=== PATIENT | female | born 1940 | race Caucasian/White ===

== ENCOUNTER 2018-12-14 13:50 | Observation (INO) ==
[2018-12-14 16:45] LABS: Basophils # 0.1 K/mcL (0.0-0.2); Basophils % 0.3 %; Eosinophils % 0.1 %; Hematocrit 45.2 % (35.3-44.9); Hemoglobin 15.7 g/dL (11.5-15.4); Immature Granulocytes % 0.6 % (0-4); Lymphocytes # 1.7 K/mcL (0.6-4.6); Lymphocytes % 9.9 %; Mean Corpuscular HGB Conc 34.7 g/dL (31.6-35.5); Mean Corpuscular Hemoglobin 32.6 pg (28.0-33.3); Mean Corpuscular Volume 93.8 fL (83.0-100.0); Mean Platelet Volume 9.7 fL (9.4-12.4); Monocytes # 1.5 K/mcL (0.0-1.3); Monocytes % 8.6 %; Platelet Count 282 K/mcL (140-400); Red Blood Count 4.82 M/mcL (3.82-4.97); Red Cell Distribution Width 11.2 % (11.5-14.5); Segmented Neutrophils % 80.5 %
[2018-12-14 16:55] LABS: Prothrombin Time 10.8 Seconds (9.4-12.1)
[2018-12-14 17:10] LABS: Alanine Aminotransferase 7 Units/L (7-52); Albumin 4.3 g/dL (3.5-5.7); Albumin/Globulin Ratio 1.7 (1.1-2.2); Alkaline Phosphatase 84 Units/L (34-104); Aspartate Amino Transferase 22 Units/L (13-39); BUN/Creatinine Ratio 11 (6-26); Bilirubin,Direct 0.1 mg/dL (0.0-0.2); Bilirubin,Indirect 0.4 mg/dL (0.0-1.2); Bilirubin,Total 0.5 mg/dL (0.3-1.0); Blood Urea Nitrogen 8 mg/dL (8-23); Calcium 9.8 mg/dL (8.6-10.3); Carbon Dioxide 35 mEq/L (23-29); Chloride 90 mEq/L (98-107); Globulin 2.5 g/dL (2.4-3.5); Glucose 144 mg/dL (70-105); Osmolality,Calculated 273 (280-300); Potassium 2.7 mEq/L (3.5-5.1); Sodium 131 mEq/L (136-145); Total Protein 6.8 g/dL (6.4-8.9); Troponin I 0.75 ng/mL (< 0.04); eGFR For Non-African Americans > 60 (> 60)
[2018-12-14] MEDS ORDERED: Aspirin 325 MG TABLET PO ONE (17:10)
[2018-12-14] MEDS ORDERED: *HR* Heparin 5,000 UNIT/ML VIAL IVP ONE (17:40)
[2018-12-14] MEDS ORDERED: *HR* Heparin 5,000 UNIT/ML VIAL IVP PRN (17:40)
--- NOTE | 2018-12-14 17:44 | Emergency Department Note ---
Disposition Clinical Impression: Elevated troponin, NSTEMI (non-ST elevated myocardial infarction), Malaise, Hypokalemia Disposition: Admitted As Inpatient Condition: Good Referrals: Naty Dyer TRANSPORTATION TECHNICIAN [Primary Care Provider] - Forms: ED Satisfaction Letter Time of Disposition: 17:51 General Adult HPI - General Chief complaint: ED Altered Mental Status Stated complaint: General Time Seen by Provider: 12/14/18 16:27 Source: patient Limitations: no limitations Nursing Notes Reviewed: Yes Vital Signs Reviewed: Yes - History of Present Illness HPI Narrative: 78-year-old female history of hyperlipidemia presents with for concern of malaise. She states she attempted to call her primary care provider but was out of the office and so they came to the emergency department to be evaluated. Patient was recently evaluated for cough and congestion 3 days ago which has not improved. She states she has been feeling more tired over the past 3 months. She has had difficulty with sleeping in earlier this month was prescribed drugs disease to help with her insomnia, which has not helped her. She denies any chest pain or shortness of breath. She denies any urinary symptoms. Husbands concerned that she is not been acting herself. Denies history of cardiac ischemic disease. She denies depression. She reports a poor diet due to low energy. Pain Scale: 0 - Related Data Previous Rx's Medication Instructions Recorded Azithromycin [Zithromax] 250 mg PO DAILY #6 tablet 12/11/18 predniSONE [PredniSONE] 40 mg PO DAILY #10 tablet 12/11/18 Allergies Allergy/AdvReac Type Severity Reaction Status Date / Time No Known Allergies Allergy Verified 11/07/18 16:47 All systems ED: reviewed and negative except as stated. Review of Systems: As Per HPI Constitutional: Reports: weakness. Denies: fever, chills ENT ED: Reports: congestion Cardiovascular: Denies: chest pain Respiratory: Denies: cough, dyspnea Gastrointestinal: Denies: abdominal pain, nausea, vomiting Genitourinary: Denies: dysuria Musculoskeletal: Denies: back pain, neck pain Neurological: Denies: headache Endocrine: Reports: fatigue Past Medical History - Past Medical History Attestation: Yes The following information was validated with the patient. Source: patient Medical history: Reports: hyperlipidemia Psychiatric history: Reports: no psych history - Social History Smoking Status: Former smoker Smokeless Tobacco Status: No Alcohol use: Reports: none Drug use: Reports: none Physical Exam - General Limitations: no limitations General appearance: alert, in no apparent distress, cachectic - Head Head exam: atraumatic, normocephalic, normal inspection - Eye Eye exam: Present: normal appearance, PERRL, EOMI - ENT ENT exam: normal exam, normal oropharynx, mucous membranes moist - Neck Neck exam: Present: normal inspection, full ROM, trachea midline - Chest Chest inspection: Present: normal inspection, symmetric chest wall rise - Respiratory Respiratory exam: Present: normal lung sounds bilaterally - Cardiovascular Cardiovascular exam: Present: regular rate, normal rhythm, normal heart sounds - Expanded Cardiovascular Exam Peripheral pulses: 2+: radial (R), radial (L) - Abdominal Exam Abdominal exam: Present: soft, Non-Tender, normal bowel sounds. Absent: tenderness, distention, guarding, rebound, rigidity - Extremities Exam Extremities exam: Present: normal inspection, full ROM, normal capillary refill. Absent: tenderness, pedal edema, calf tenderness - Back Exam Back exam: Present: normal inspection, full ROM. Absent: tenderness - Neurological Exam Neurological exam: Present: alert, oriented X3 - Psychiatric Psychiatric exam: Present: normal affect, normal mood - Skin Skin exam: Present: warm, dry, intact, normal color. Absent: rash, cyanosis, diaphoresis Course Course Narrative: Patient was evaluated 2 hours after initial arrival, labs were ordered prior to my evaluation. She had a critical troponin of 0.75. EKG shows a left bundle branch block the does appear consistent with prior EKG 2014. She denies any ongoing chest pain or history of chest pain. She does report a congestion that she was recently evaluated 3 days ago. She denies any shortness of breath. Her only the complaint his malaise. At this time patient will require admission for further evaluation of her elevated troponin as it is unexplained at this time. Will replete her potassium at this time. Impression is elevated troponin, NSTEMI, and hypokalemia with malaise. She has been ordered aspirin and will be anticoagulated with heparin as she denies any bloody stool blacked tarry stool hemoptysis hematemesis or hematuria - Consultations Consultation #1: Spoke with on-call manager integrity Dr. Jonas who reviewed the EKG's and agrees this is nothing acute at this time but would anticoagulated with heparin. If repeat EKG has dynamic changes consider speaking with interventional cardiologists otherwise will evaluate the patient in the hospital Time: 17:44 Consultation #2: Spoke with on-call hospitalist christa Narvaez to admit for malaise, elevated trop, NSTEMI, hypokalemia. We discussed the lab findings which included a leukocytosis despite on steroids. Requests for blood cultures, lactate as well as magnesium and phosphorus. Time: 17:52 Vital Signs Temperature 97.9 F 12/14/18 13:55 Pulse Rate 81 12/14/18 13:55 Respiratory Rate 20 12/14/18 13:55 Blood Pressure 137/65 12/14/18 13:55 O2 Sat by Pulse Oximetry 94 12/14/18 13:55 Temperature 97.9 F 12/14/18 13:55 Pulse Rate 62 12/14/18 17:34 Respiratory Rate 18 12/14/18 17:34 Blood Pressure 128/94 12/14/18 17:34 O2 Sat by Pulse Oximetry 98 12/14/18 17:34 Oxygen Delivery Oxygen Delivery Room Air Medical Decision Making - MDM Narrative Medical decision making narrative: Patient was discussed with my attending physician who agrees with ED management and final disposition. They independently evaluated the patient. Please refer to their attestation to this encounter for additional information. This note was generated by [employer] voice recognition software and as a result grammatical or spelling errors may occur using this program. - Medical Records Medical records reviewed: Yes I reviewed the patient's medical records. - Lab Data Lab results reviewed: Yes I reviewed the patient's lab results. Result diagrams: 12/14/18 16:26 12/14/18 16:26 Lab Results 12/14/18 12/14/18 12/14/18 Range/Units 16:26 16:26 16:26 WBC 17.4 H (4.3-11.1) K/mcL RBC 4.82 (3.82-4.97) M/mcL Hgb 15.7 H (11.5-15.4) g/dL Hct 45.2 H (35.3-44.9) % MCV 93.8 (83.0-100.0) fL MCH 32.6 (28.0-33.3) pg MCHC 34.7 (31.6-35.5) g/dL RDW 11.2 L (11.5-14.5) % Plt Count 282 (140-400) K/mcL MPV 9.7 (9.4-12.4) fL Immature Gran % 0.6 (0-4) % Seg Neutrophils % 80.5 % Lymphocytes % 9.9 % Monocytes % 8.6 % Eosinophils % 0.1 % Basophils % 0.3 % Neutrophils # 14.0 H (1.6-8.9) K/mcL Lymphocytes # 1.7 (0.6-4.6) K/mcL Monocytes # 1.5 H (0.0-1.3) K/mcL Eosinophils # 0.0 (0.0-0.6) K/mcL Basophils # 0.1 (0.0-0.2) K/mcL PT 10.8 (9.4-12.1) Seconds INR 1.0 APTT 29.0 (26.0-36.0) Seconds Sodium 131 L (136-145) mEq/L Potassium 2.7 L (3.5-5.1) mEq/L Chloride 90 L (98-107) mEq/L Carbon Dioxide 35 H (23-29) mEq/L BUN 8 (8-23) mg/dL Creatinine 0.76 (0.60-1.20) mg/dL Est GFR ( Amer) > 60 (> 60) Est GFR (Non-Af Amer) > 60 (> 60) BUN/Creatinine Ratio 11 (6-26) Glucose 144 H (70-105) mg/dL Calculated Osmolality 273 L (280-300) Calcium 9.8 (8.6-10.3) mg/dL Total Bilirubin 0.5 (0.3-1.0) mg/dL Direct Bilirubin 0.1 (0.0-0.2) mg/dL Indirect Bilirubin 0.4 (0.0-1.2) mg/dL AST 22 (13-39) Units/L ALT 7 (7-52) Units/L Alkaline Phosphatase 84 (34-104) Units/L Troponin I 0.75 H* (< 0.04) ng/mL Serum Total Protein 6.8 (6.4-8.9) g/dL Albumin 4.3 (3.5-5.7) g/dL Globulin 2.5 (2.4-3.5) g/dL Albumin/Globulin Ratio 1.7 (1.1-2.2) - Radiology Data Radiology results reviewed: Yes I reviewed the patient's radiology results. Chest X-Ray 12/14/18 15:37 IMPRESSION: Negative single view chest. D/ / Brian Frazier MD / Brian Frazier MD Interpreting Provider: Brian Frazier MD - EKG Data EKG #1 EKG attestation: Yes I reviewed and interpreted this EKG. EKG results narrative: EKG performed 1622 normal sinus rhythm 67 beats per minute with left bundle branch block, no Sgarbossa criteria. Compared to prior EKG performed 03/01/2015 shows so some intraventricular conduction delay with similar wave morphology. A repeat EKG was performed 1724 and 1752 does show the elevations and V1 through V3 similar to prior consistent with left bundle branch block. Attestation Statement - Attestation Attestation: I, Kota Pérez DO, examined this patient [id number] and my medical decision-making was reviewed with Steve Benitez DO , Resident Physician. I agree with the documented findings, disposition and treatment plan as described except to the extent set forth below. Please see my progress notes for details.
[2018-12-14] MEDS ORDERED: Heparin 25,000 UNIT/250 ML D5W 25,000 UNIT/250 ML IV.SOLN IVC SCH (17:45)
[2018-12-14] MEDS ORDERED: 0.9 % Sodium Chloride 500 ML IVC ONE (17:46)
--- NOTE | 2018-12-14 18:11 | Emergency Department Note ---
Disposition Clinical Impression: Elevated troponin, NSTEMI (non-ST elevated myocardial infarction), Malaise, Hypokalemia Disposition: Admitted As Inpatient Condition: Good Referrals: Naty Dyer SPECIAL EDUCATION TEACHING ASSISTANT [Primary Care Provider] - Forms: ED Satisfaction Letter Time of Disposition: 18:12 General Adult HPI - General Chief complaint: ED Altered Mental Status Stated complaint: General Time Seen by Provider: 12/14/18 16:27 Source: patient Limitations: no limitations - History of Present Illness Pain Scale: 0 - Related Data Previous Rx's Medication Instructions Recorded Azithromycin [Zithromax] 250 mg PO DAILY #6 tablet 12/11/18 predniSONE [PredniSONE] 40 mg PO DAILY #10 tablet 12/11/18 Allergies Allergy/AdvReac Type Severity Reaction Status Date / Time No Known Allergies Allergy Verified 11/07/18 16:47 Constitutional: Reports: weakness. Denies: fever, chills ENT ED: Reports: congestion Cardiovascular: Denies: chest pain Respiratory: Denies: cough, dyspnea Gastrointestinal: Denies: abdominal pain, nausea, vomiting Genitourinary: Denies: dysuria Musculoskeletal: Denies: back pain, neck pain Neurological: Denies: headache Endocrine: Reports: fatigue Past Medical History - Past Medical History Medical history: Reports: hyperlipidemia Psychiatric history: Reports: no psych history - Social History Smoking Status: Former smoker Smokeless Tobacco Status: No Alcohol use: Reports: none Drug use: Reports: none Physical Exam - General Limitations: no limitations General appearance: alert, in no apparent distress, cachectic Course Vital Signs Temperature 97.9 F 12/14/18 13:55 Pulse Rate 81 12/14/18 13:55 Respiratory Rate 20 12/14/18 13:55 Blood Pressure 137/65 12/14/18 13:55 O2 Sat by Pulse Oximetry 94 12/14/18 13:55 Temperature 97.9 F 12/14/18 13:55 Pulse Rate 62 12/14/18 17:34 Respiratory Rate 18 12/14/18 17:34 Blood Pressure 128/94 12/14/18 17:34 O2 Sat by Pulse Oximetry 98 12/14/18 17:34 Oxygen Delivery Oxygen Delivery Room Air Medical Decision Making - Lab Data Result diagrams: 12/14/18 16:26 12/14/18 16:26 Lab Results 03/26/19 03/26/19 03/26/19 Range/Units 16:26 16:26 16:26 WBC 17.4 H (4.3-11.1) K/mcL RBC 4.82 (3.82-4.97) M/mcL Hgb 15.7 H (11.5-15.4) g/dL Hct 45.2 H (35.3-44.9) % MCV 93.8 (83.0-100.0) fL MCH 32.6 (28.0-33.3) pg MCHC 34.7 (31.6-35.5) g/dL RDW 11.2 L (11.5-14.5) % Plt Count 282 (140-400) K/mcL MPV 9.7 (9.4-12.4) fL Immature Gran % 0.6 (0-4) % Seg Neutrophils % 80.5 % Lymphocytes % 9.9 % Monocytes % 8.6 % Eosinophils % 0.1 % Basophils % 0.3 % Neutrophils # 14.0 H (1.6-8.9) K/mcL Lymphocytes # 1.7 (0.6-4.6) K/mcL Monocytes # 1.5 H (0.0-1.3) K/mcL Eosinophils # 0.0 (0.0-0.6) K/mcL Basophils # 0.1 (0.0-0.2) K/mcL PT 10.8 (9.4-12.1) Seconds INR 1.0 APTT 29.0 (26.0-36.0) Seconds Sodium 131 L (136-145) mEq/L Potassium 2.7 L (3.5-5.1) mEq/L Chloride 90 L (98-107) mEq/L Carbon Dioxide 35 H (23-29) mEq/L BUN 8 (8-23) mg/dL Creatinine 0.76 (0.60-1.20) mg/dL Est GFR ( Amer) > 60 (> 60) Est GFR (Non-Af Amer) > 60 (> 60) BUN/Creatinine Ratio 11 (6-26) Glucose 144 H (70-105) mg/dL Calculated Osmolality 273 L (280-300) Calcium 9.8 (8.6-10.3) mg/dL Total Bilirubin 0.5 (0.3-1.0) mg/dL Direct Bilirubin 0.1 (0.0-0.2) mg/dL Indirect Bilirubin 0.4 (0.0-1.2) mg/dL AST 22 (13-39) Units/L ALT 7 (7-52) Units/L Alkaline Phosphatase 84 (34-104) Units/L Troponin I 0.75 H* (< 0.04) ng/mL Serum Total Protein 6.8 (6.4-8.9) g/dL Albumin 4.3 (3.5-5.7) g/dL Globulin 2.5 (2.4-3.5) g/dL Albumin/Globulin Ratio 1.7 (1.1-2.2) Attestation Statement - Attestation Attestation: I, Kota Pérez DO, examined this patient [id number] and my medical decision-making was reviewed with (Steve Benitez DO , Resident Physician. I agree with the documented findings, disposition and treatment plan as described except to the extent set forth below. Please see my progress notes for details. 78-year-old female presents emergency room with multiple diet complaints including generalized malaise and weakness for the last several months. Patient denies any falls trauma or injury. She does not have any new or acute medical issues. Currently she is denying chest pain, shortness of breath. Denies any fevers or chills. She does not have any nausea vomiting or diarrhea. No headache no vision change. Patient's vital signs otherwise stable. She denies any new medications falls trauma or injury. On physical exam this is a very thin appearing female in no specific respiratory or cardiac distress. Lungs are clear heart is regular. Oropharynx is patent mucous membranes are dry. Abdomen is soft nontender nondistended. No guarding no rigidity. No signs of pitting is edema or swelling noted at this time. Disposition to be determined once workup and treatment course have been established. Patient is otherwise stable. See detailed documentation the physical exam, medical intervention, medical decision-making and disposition the resident physician's note. No critical care by the patient's treatment course at this time. 1800 EKG shows stable left bundle branch block. No acute signs of ST segment elevation or abnormality. Patient does have an elevated troponin at 0.75. She again denies any chest pain or recent issues with chest pain. Patient was discussed with the on-call tanbark laborer Dr. rees reviewed the EKG and the presentation and did recommend starting the patient on heparin. Patient is otherwise describing no acute complaints at this time. Disposition will be admission the hospital for continuation of care management. Patient otherwise is stable resting comfortably in the bed and does not appear to have any respiratory or cardiac related stress or symptoms at this time. Disposition will be admission. The hospitalist Dr. Del Rio reviewed the case. Recommended several alive secondary to the elevated white blood cell count. Concern is noted for infection. She was recently on antibiotics and steroids. No antibiotic regimen will be started at this point with a heparin drip will be completed. Patient will be monitored here in the emergency department until admission processes established. Patient will have a lactic acid collected as well and blood cultures. Patient will be monitored here until admission is completed
[2018-12-14 18:32] LABS: Bilirubin,Urine Negative (Negative); Blood,Urine Trace (Negative); Clarity,Urine Cloudy (Clear); Color,Urine Yellow (Yellow); Glucose,Urine (UA) Normal (Normal); Ketones,Urine Negative (Negative); Leukocyte Esterase,Urine Negative (Negative); Nitrite,Urine Negative (Negative); Protein,Urine 30 mg/dL (Neg-Trace); Specific Gravity,Urine 1.006 (1.010-1.025); Urobilinogen,Urine Normal (Normal)
[2018-12-14 18:34] LABS: Bacteria,Urine None Seen per hpf (None-Few); Hyaline Casts,Urine None Seen per lpf (None-Few); Squamous Epithelial Cell,Urine Many per lpf (None-Few); WBC,Urine 0-3 per hpf (0-3)
[2018-12-14 18:51] LABS: Hematocrit 40.3 % (35.3-44.9); Hemoglobin 14.4 g/dL (11.5-15.4); Mean Corpuscular HGB Conc 35.7 g/dL (31.6-35.5); Mean Corpuscular Hemoglobin 32.6 pg (28.0-33.3); Mean Corpuscular Volume 91.2 fL (83.0-100.0); Mean Platelet Volume 9.4 fL (9.4-12.4); Platelet Count 254 K/mcL (140-400); Red Blood Count 4.42 M/mcL (3.82-4.97); Red Cell Distribution Width 11.6 % (11.5-14.5)
[2018-12-14 18:52] LABS: Amphetamine Screen,Urine Negative ng/mL (Cutoff=1000); Barbiturate Screen,Urine Negative ng/mL (Cutoff=200); Benzodiazepines Screen,Urine Negative ng/mL (Cutoff=200); Cannabinoid Screen,Urine Negative ng/mL (Cutoff = 50); Cocaine Screen,Urine Negative ng/mL (Cutoff= 300); Opiate Screen,Urine Negative ng/mL (Cutoff=300); Phencyclidine Screen,Urine Negative ng/mL (Cutoff=25)
[2018-12-14 19:07] LABS: INR 0.9
[2018-12-14 19:11] LABS: Magnesium 1.8 mg/dL (1.6-2.6); Phosphorous 2.4 mg/dL (2.7-4.5)
--- NOTE | 2018-12-14 20:35 | Internal Med History&Physical ---
<ShanLexi Cheung - Last Filed: 12/14/18 21:27> Date of Encounter: 12/14/18 Time of Encounter: 20:45 Internal Medicine - H&P: HPI Chief complaint: Malaise Admitted From: Home History of present illness: Ms. Polanco is a 78 year old female with a history of hyperlipidemia and insomnia who presented to the ER with her with complaint of malaise and congestion. Patient was recently seen in the ER on 12/11/18 with complaint of congestion and was discharged with a Z-Prem and prednisone 40 mg daily. She started taking these medications yesterday. Patient reports not feeling like herself since she fell in mid October. Her also reports that she has lost approximately 10 pounds in the past year and has had a reduced appetite. She states that she is usually pretty healthy and self-sufficient, but just has not been able to do her usual activities over the past month. She has been struggling with some congestion and sinus pressure for the past week. She also admits to a nonproductive cough and dry heaves without vomiting since Thursday. She denies any fever, chills, chest pain, syncope, shortness of breath, a bdominal pain, or diarrhea. Patient was found to have an elevated troponin at 0.75 as well as hypokalemia 2.7 and is being admitted for further evaluation. ER course: Afebrile, HR 77, RR 20, BP 143/87, 94% on RA WBC 17.4, Lactate 2.2 PT 10.8, INR 1. Na 131, K2.7, Mg 1.8, Phos 2.4 Troponin 0.75 UA negative Urine tox screen negative EKG NSR with left bundle branch block similar to previous CXR without acute abnormality 500 mL NS fluid bolus ASA 325 mg 1, started on heparin Potassium 40 meq 1 Blood cultures 2 Past Med Surg Social Fam HX - Past Medical History Medical history: hyperlipidemia Psychiatric history: no psych history - Past Surgical History Additional surgical history: L hip repair - Social History Smoking Status: Former smoker Smokeless Tobacco Status: No Alcohol use: none Drug use: none - Family History Father Living Status: Age at : 50 Cause of : RI Hx Family Cardiac Disorders: Yes ( secondary to RI in his 50s) Mother Living Status: Age at : 70 Cause of : CVA Internal Medicine - H&P: Meds Ascorbic Acid [Vitamin C] 500 mg PO DAILY 12/14/18 [History] Cholecalciferol (Vitamin D3) [Vitamin D] 5,000 unit PO DAILY 12/14/18 [History] Guaifenesin/Dm/Pseudoephedrine [Capmist Dm Tablet] 1 tab PO DAILY PRN 12/14/18 [History] Lactobacillus Acidophilus [Acidophilus] 1 cap PO DAILY 12/14/18 [History] Loratadine [Claritin] 10 mg PO DAILY 12/14/18 [History] RX: Dicyclomine Hcl [Bentyl] 20 mg PO QID PRN 12/14/18 [History] RX: Folic Acid 1 mg PO DAILY 12/14/18 [History] RX: Lovastatin [Altoprev] 20 mg PO HS 12/14/18 [History] Allergy/AdvReac Type Severity Reaction Status Date / Time No Known Allergies Allergy Verified 11/07/18 16:47 All Systems PM: A 10-system review of systems was performed and is negative for pertinent findings except as documented above in the HPI. - Constitutional Constitutional: malaise, weight loss, no chills, no fever(s) Additional comments: Approximately 10 pounds over the past year - EENT Eyes: no change in vision, no itchy eyes Nose, mouth and throat: nasal congestion, nasal discharge, sinus pressure, no dysphagia, no sore throat - Cardiovascular Cardiovascular ROS IM: no chest pain, no diaphoresis, no dyspnea, no edema, no lightheadedness, no palpitations, no syncope - Respiratory Respiratory: cough, no dyspnea, no chest congestion - Gastrointestinal Gastrointestinal: belching, early satiety, excessive flatus, no abdominal pain, no diarrhea, no hematemesis, no hematochezia, no melena, no nausea, no vomiting - Genitourinary Genitourinary: no difficulty urinating, no dysuria, no hematuria, no vaginal discharge - Musculoskeletal Musculoskeletal ROS IM: no arthralgias, no joint swelling, no muscle weakness, no numbness, no tingling - Neurological Neurological ROS: memory loss, no confusion, no disequilibrium, no dizziness, no headache(s), no numbness, no tingling, no vertigo Additional comments: admits to feeling motion sick at times - Psychiatric Psychiatric: change in appetite (decreased with early satiety), no confusion, no depression, no mood swings - Constitutional Vitals: Temp Pulse Resp BP Pulse Ox 97.9 F 88 18 134/68 98 12/14/18 13:55 12/14/18 20:02 12/14/18 20:02 12/14/18 20:02 12/14/18 20:02 General appearance: Present: A&O X 3, no acute distress, underweight, answers questions appropriately Exam: see above - Head Head exam: Present: atraumatic, normocephalic - Eye Eye exam: Present: EOMI, conjuntiva pink, sclera anicteric - Neck Neck exam general surgery: Present: trachea midline - Respiratory Respiratory exam: Present: CTAB. Absent: accessory muscle use, rales, rhonchi, wheezes - Cardiovascular Cardiovascular exam: Present: RRR, +S1, +S2. Absent: diastolic murmur, systolic murmur - GI/Abdominal GI/Abdominal exam: Present: normal bowel sounds, soft. Absent: distended, tenderness - Extremities Exam Extremities exam: Present: warm, radial pulses palpable and symmetrical. Absent: cyanotic, pedal edema - Neurological Exam Neurological exam: Present: oriented X3, no focal deficits. Absent: pronater drift, facial droop, speech deficit - Psychiatric Psychiatric exam: Present: normal affect, normal mood - Skin Skin exam: Present: dry, intact, warm. Absent: cyanosis, diaphoretic, rash Internal Med - H&P Results - Labs CBC & Chem 7: 12/14/18 17:40 12/14/18 16:26 Labs: Short CBC 12/14/18 12/14/18 Range/Units 16:26 17:40 WBC 17.4 H 17.0 H (4.3-11.1) K/mcL Hgb 15.7 H 14.4 (11.5-15.4) g/dL Hct 45.2 H 40.3 (35.3-44.9) % Plt Count 282 254 (140-400) K/mcL Neutrophils # 14.0 H (1.6-8.9) K/mcL BMP 12/14/18 16:26 Sodium 131 L Potassium 2.7 L Chloride 90 L Carbon Dioxide 35 H BUN 8 Creatinine 0.76 Glucose 144 H Calcium 9.8 Cardiac Enzymes 12/14/18 Range/Units 16:26 Troponin I 0.75 H* (< 0.04) ng/mL Liver Function 12/14/18 Range/Units 16:26 Total Bilirubin 0.5 (0.3-1.0) mg/dL Direct Bilirubin 0.1 (0.0-0.2) mg/dL AST 22 (13-39) Units/L ALT 7 (7-52) Units/L Alkaline Phosphatase 84 (34-104) Units/L Albumin 4.3 (3.5-5.7) g/dL Urine 12/14/18 Range/Units 18:13 Urine Color Yellow (Yellow) Urine Clarity Cloudy A (Clear) Urine pH 7.0 (5.0-8.0) pH Units Ur Specific [place] 1.006 L (1.010-1.025) Urine Protein 30 H (Neg-Trace) mg/dL Urine Glucose (UA) Normal (Normal) mg/dL - Impressions ITS Impressions Chest X-Ray 12/14/18 15:37 IMPRESSION: Negative single view chest. D/ / Brian Frazier MD / Brian Frazier MD Interpreting Provider: Brian Frazier MD - Assessment and Plan (1) Elevated troponin Current Visit: Yes Status: Acute Assessment and plan: Troponin 0.75 on presentation, unclear if this is acute vs demand ischemia vs baseline Patient denies CP, cardiac hx, or previous workup EKG NSR with left bundle branch block similar to previous EKG Patient was given ASA and started on Heparin in the ER Repeat troponin pending Echo pending Clinically does not appear to be NSTEMI dt patient being asymptomatic and EKG without acute changes, will trend troponin and consider discontinuing heparin drip if appears to adynamic (2) Electrolyte imbalance Current Visit: Yes Status: Acute Assessment and plan: Likely secondary to dehydration and poor nutritional status Na 131, K 2.7, Cl 90, Phos 2.4 Potassium Chloride 40meq x1 in ER s/p 500 mL NS bolus 0.9% NS with KCl x 1L Potassium Phosphate 22meq ordered Will reassess on AM labs (3) Leukocytosis Current Visit: Yes Status: Acute Assessment and plan: Likely secondary to recent steroid treatment, less concern for infectious etiology WBC 17.4 on presentation Lactic acid 2.2 Afebrile UA negative CXR negative blood cultures pending Continue IVFs Will reassess on AM labs Qualifiers: Leukocytosis type: unspecified Qualified Code(s): D72.829 - Elevated white blood cell count, unspecified (4) Congestion of paranasal sinus Current Visit: Yes Status: Acute Assessment and plan: Mild congestion with nonproductive cough 1 week No antibiotics warranted at this time Continue albuterol, mucolytics, and decongestant PRN (5) Malaise Current Visit: Yes Status: Acute Assessment and plan: Possibly related to deconditioning s/p recent fall vs nutritional status vs viral sinusitis Continue supportive care (6) Protein calorie malnutrition Current Visit: Yes Status: Acute Assessment and plan: states patient has lost approximately 10 pounds in the past year Patient admits to decreased appetite and early satiety BMI 15.6 Follows regularly with PCP in [place], consider further outpatient evaluation Continue supportive care Qualifiers: Protein-calorie malnutrition severity: unspecified severity Qualified Code(s): E46 - Unspecified protein-calorie malnutrition (7) DVT prophylaxis Current Visit: Yes Status: Acute Assessment and plan: Heparin - Time Spent With Patient Total time spent is greater than 50% in coordination of care (as documented) at patient's floor/unit and/or counseling patient: <Denae Dickinsoneleni - Last Filed: 12/15/18 01:54> Date of Encounter: 12/14/18 Internal Medicine - H&P: HPI History of present illness: Ms. Polanco is a 78 year old female All Systems PM: A 10-system review of systems was performed and is negative for pertinent findings except as documented above in the HPI. - Constitutional Vitals: Temp Pulse Resp BP Pulse Ox 97.4 F L 79 18 135/62 92 12/14/18 23:36 12/14/18 23:36 12/14/18 23:36 12/14/18 23:36 12/14/18 23:36 Internal Med - H&P Results - Labs CBC & Chem 7: 12/14/18 17:40 12/14/18 23:50 Labs: Short CBC 12/14/18 12/14/18 Range/Units 16:26 17:40 WBC 17.4 H 17.0 H (4.3-11.1) K/mcL Hgb 15.7 H 14.4 (11.5-15.4) g/dL Hct 45.2 H 40.3 (35.3-44.9) % Plt Count 282 254 (140-400) K/mcL Neutrophils # 14.0 H (1.6-8.9) K/mcL BMP 12/14/18 12/14/18 16:26 23:50 Sodium 131 L 135 L Potassium 2.7 L 3.3 L Chloride 90 L 95 L Carbon Dioxide 35 H 32 H BUN 8 9 Creatinine 0.76 0.63 Glucose 144 H 94 Calcium 9.8 9.2 Cardiac Enzymes 12/14/18 Range/Units 16:26 Troponin I 0.75 H* (< 0.04) ng/mL Liver Function 12/14/18 Range/Units 16:26 Total Bilirubin 0.5 (0.3-1.0) mg/dL Direct Bilirubin 0.1 (0.0-0.2) mg/dL AST 22 (13-39) Units/L ALT 7 (7-52) Units/L Alkaline Phosphatase 84 (34-104) Units/L Albumin 4.3 (3.5-5.7) g/dL Urine 12/14/18 Range/Units 18:13 Urine Color Yellow (Yellow) Urine Clarity Cloudy A (Clear) Urine pH 7.0 (5.0-8.0) pH Units Ur Specific [place] 1.006 L (1.010-1.025) Urine Protein 30 H (Neg-Trace) mg/dL Urine Glucose (UA) Normal (Normal) mg/dL - Impressions ITS Impressions Chest X-Ray 12/14/18 15:37 IMPRESSION: Negative single view chest. D/ / Brian Frazier MD / Brian Frazier MD Interpreting Provider: Brian Frazier MD - Time Spent With Patient Total time spent is greater than 50% in coordination of care (as documented) at patient's floor/unit and/or counseling patient: - Attending Attestation I performed a history and physical exam of the patient on 12/14/18 and discussed management with the resident. I reviewed the resident's note and agree with the documented findings and plan of care. Caprice Polanco presents with complaints of URI symptoms that have been bothersome but incidentally had a troponin test done in the ER for no specified reason and seen elevated at 0.75. EKG as reviewed by me shows LBBB which is similar to old studies. Although she denies any known prior heart disease, the presence of LBBB does correlate with her having had heart problems in the past. It is unclear if this troponin elevation is associated with that and perhaps part of her baseline as we have no prior test in our system. Clinically she does not present with signs of ACS as her complaints her congestion and insomnia. She was started on heparin gtt haphazardly. Will monitor on telemetry, repeat another troponin level and if adynamic discontinue the anticoagulation. Provide symptomatic relief measures for URI. Leukocyte elevation seems secondary to use of steroids. No indication for antibiotics. Notable electrolyte imbalances with hypokalemia/natremia/chloremia/phosphatemia. Appears to be secondary to poor intake and evident dehydration. Will replete these electrolytes and recheck. YVETTE MORAN.
[2018-12-14] MEDS ORDERED: 0.9 % Sodium Chloride w KCl 40 MEQ/1,000 ML MLS IVC SCH (21:00)
[2018-12-14] MEDS ORDERED: Naloxone 0.4 MG/ML INJ IVP PRN (21:44)
[2018-12-14] MEDS ORDERED: Ondansetron ODT 4 MG TAB.RAPDIS SL PRN (21:44)
[2018-12-14] MEDS ORDERED: Potassium Phosphate 44 MEQ in 0.9 % Sodium Chloride 250 ML IVPB PRN (22:26)
[2018-12-14] MEDS ORDERED: GuaiFENesin/Dextromethorphan TABLET PO PRN (22:29)
[2018-12-14] MEDS ORDERED: Albuterol 2.5 MG/3 ML NEBULIZER IH PRN (22:32)
[2018-12-15] MEDS ORDERED: hydrOXYzine pamoate 25 MG CAPSULE PO PRN (00:51)
[2018-12-15 01:48] LABS: BUN/Creatinine Ratio 14 (6-26); Blood Urea Nitrogen 9 mg/dL (8-23); Calcium 9.2 mg/dL (8.6-10.3); Carbon Dioxide 32 mEq/L (23-29); Chloride 95 mEq/L (98-107); Glucose 94 mg/dL (70-105); Osmolality,Calculated 278 (280-300); Potassium 3.3 mEq/L (3.5-5.1); Sodium 135 mEq/L (136-145); eGFR For Non-African Americans > 60 (> 60)
[2018-12-15 02:29] LABS: Hematocrit 38.2 % (35.3-44.9); Hemoglobin 13.6 g/dL (11.5-15.4); Mean Corpuscular HGB Conc 35.6 g/dL (31.6-35.5); Mean Corpuscular Hemoglobin 32.6 pg (28.0-33.3); Mean Corpuscular Volume 91.6 fL (83.0-100.0); Mean Platelet Volume 9.7 fL (9.4-12.4); Platelet Count 242 K/mcL (140-400); Red Blood Count 4.17 M/mcL (3.82-4.97); Red Cell Distribution Width 11.6 % (11.5-14.5)
[2018-12-15] MEDS: *HR* Heparin 5,000 UNIT/ML VIAL IVP PRN ×2 (02:51→15:40)
[2018-12-15 03:02] LABS: BUN/Creatinine Ratio 17 (6-26); Blood Urea Nitrogen 11 mg/dL (8-23); Calcium 8.7 mg/dL (8.6-10.3); Carbon Dioxide 31 mEq/L (23-29); Chloride 99 mEq/L (98-107); Glucose 115 mg/dL (70-105); Osmolality,Calculated 286 (280-300); Potassium 4.2 mEq/L (3.5-5.1); Sodium 138 mEq/L (136-145); eGFR For Non-African Americans > 60 (> 60)
[2018-12-15] MEDS: Folic Acid 1 MG TABLET PO SCH (08:12)
[2018-12-15] MEDS: Loratadine 10 MG TABLET PO SCH (08:12)
[2018-12-15] MEDS: Dorzolamide/Timolol OPTH 10 ML BOTTLE BOTH EYES SCH ×2 (08:12→19:48)
[2018-12-15] MEDS ORDERED: Perflutren Lipid Microsphere 1.3 ML in 0.9 % Sodium Chloride 8.7 ML IVP ONE (10:50)
--- NOTE | 2018-12-15 11:17 | Cardiology Consult Note ---
<Josep Parnell - Last Filed: 12/15/18 14:03> Date of Encounter: 12/15/18 Time of Encounter: 13:05 Assessment and Plan (1) Elevated troponin Current Visit: Yes Status: Acute 78 year old female presented with chest congestion, diaphoresis, and dry heaving for the past 4 days. Labs revealed elevated troponins 0.75 --> 0.90 --> 0.55 EKG revealed left bundle-branch block. She was started on Aspirin and a heparin drip. Echocardiogram pending, further recommendations to follow (2) Hypokalemia Current Visit: Yes Status: Acute Hypokalemia 2.7 on arrival, magnesium level is within normal limits Potassium supplemented (3) Hyperlipidemia Current Visit: Yes Status: Acute Continue statin. Qualifiers: Hyperlipidemia type: unspecified Qualified Code(s): E78.5 - Hyperlipidemia, unspecified (4) Protein calorie malnutrition Current Visit: Yes Status: Chronic Management per primary team. Qualifiers: Protein-calorie malnutrition severity: unspecified severity Qualified Code(s): E46 - Unspecified protein-calorie malnutrition Discussion w patient/family: The assessment and plan as outlined above was discussed with the patient and/or family members who expressed understanding and agreement. All questions were answered. Thank you for involving us in the care of your patient. Please call with any questions. History of Present Illness Consult date: 12/15/18 Requesting physician: Brittany Beard Consult reason: Elevated troponin I Chief complaint: Chest congestion History of present illness: Ms. Polanco is a 78 year old female with a past medical history of hyperlipidemia, emphysema, IBS, osteoporosis, and low body weight who presented complaining of chest congestion and malaise despite starting prednisone and Z- Prem yesterday. She reports associated nonproductive cough, nausea, and dry heaving for the past 4 days. Patient denies fever, chills, chest pain, shortness of breath, syncope, or history of cardiac problems. Labs revealed hypokalemia 2.7 and elevated troponins 0.75 --> 0.90 --> 0.55. EKG revealed left bundle-branch block. She was given aspirin and started on heparin drip. Echocardiogram was ordered. Cardiology was consulted for further evaluation. Past Med Surg Social Fam HX - Past Medical History Medical history: hyperlipidemia Psychiatric history: no psych history - Past Surgical History Additional surgical history: L hip repair - Social History Smoking Status: Former smoker Smokeless Tobacco Status: No Alcohol use: none Drug use: none - Family History Father Living Status: Age at : 53 Cause of : MS Hx Family Cardiac Disorders: Yes (MS) Mother Living Status: Age at : 75 Cause of : CVA Medications and Allergies Ascorbic Acid [Vitamin C] 500 mg PO DAILY 12/14/18 [History] Dicyclomine Hcl [Bentyl] 20 mg PO QID PRN 12/14/18 [History] Folic Acid 1 mg PO DAILY 12/14/18 [History] Lactobacillus Acidophilus [Acidophilus] 1 cap PO DAILY 12/14/18 [History] Loratadine [Claritin] 10 mg PO DAILY 12/14/18 [History] Azithromycin [Azithromycin 6-Tab Pack] 250 mg PO PER PKG DI 12/15/18 [History] Cholecalciferol (Vitamin D3) [Dialyvite Vitamin D] 5,000 unit PO DAILY 12/15/18 [History] Dorzolamide/Timolol/Pf [Cosopt Pf Eye Drops] 1 drp BOTH EYES BID 12/15/18 [History] Lovastatin [Mevacor] 20 mg PO DAILY 12/15/18 [History] PredniSONE [Deltasone] 40 mg PO DAILY 12/15/18 [History] hydrOXYzine HCl [Hydroxyzine HCl] 25 - 50 mg PO HS PRN 12/15/18 [History] Allergy/AdvReac Type Severity Reaction Status Date / Time No Known Allergies Allergy Verified 12/15/18 16:02 All Systems Review: The remainder of the systems were reviewed and are negative - Constitutional Constitutional: fatigue, lethargy, malaise, weakness, weight loss, no chills, no fever(s) - EENT Nose, mouth and throat: sinus pain, no dysphagia, no sore throat - Cardiovascular Cardiovascular: diaphoresis, no chest pain at rest, no chest pain with exertion, no dyspnea at rest, no dyspnea on exertion, no leg edema, no lightheadedness, no palpitations, no syncope - Respiratory Respiratory: no cough, no dyspnea - Gastrointestinal Gastrointestinal: nausea, no abdominal pain, no diarrhea - Genitourinary Genitourinary: no dysuria, no hematuria - Musculoskeletal Musculoskeletal: no back pain, no myalgias - Integumentary Integumentary: no erythema, no rash - Neurological Neurological: no dizziness, no numbness, no syncope - Psychiatric Psychiatric: no anxiety, no depression - Hematological/Lymphatic Hematologic/Lymphatic: no easy bleeding, no easy bruising Physical Examination Vital Signs, Last 4 Hours Temp Pulse Resp BP Pulse Ox 12/15/18 09:02 97 12/15/18 07:19 98.2 F 89 20 122/70 97 General: Conversant, No Apparent Distress, Other (cachectic) HEENT: Atraumatic, Normocephaly, Other (mucus membranes dry) Neck: No JVD, Normal carotid pulses Cardiac: Reg Rate and Rhythm, Normal S1 and S2 Lungs: Normal Breath Sounds, No Wheeze, Rales, Rhonchi Neuro: Alert and responsive, No focal deficits noted Abdomen: Soft, Non-Tender Skin: No rashes noted on visualized skin Musculoskeletal: No Chest Wall Tenderness Extremities: No Clubbing, No Cyanosis, No Edema, Normal Pulses Results 12/15/18 02:02 12/15/18 02:02 Lab Results 12/14/18 12/14/18 12/14/18 16:26 16:26 16:26 WBC 17.4 H Hgb 15.7 H Hct 45.2 H Plt Count 282 INR 1.0 APTT 29.0 Sodium 131 L Potassium 2.7 L Chloride 90 L Carbon Dioxide 35 H BUN 8 Creatinine 0.76 Glucose 144 H Calcium 9.8 Magnesium Total Bilirubin 0.5 AST 22 ALT 7 Alkaline Phosphatase 84 Troponin I 0.75 H* TSH 12/14/18 12/14/18 12/14/18 17:40 17:40 17:48 WBC 17.0 H Hgb 14.4 Hct 40.3 Plt Count 254 INR 0.9 APTT Sodium Potassium Chloride Carbon Dioxide BUN Creatinine Glucose Calcium Magnesium 1.8 Total Bilirubin AST ALT Alkaline Phosphatase Troponin I TSH 12/14/18 12/14/18 12/15/18 23:50 23:50 02:02 WBC 13.5 H Hgb 13.6 Hct 38.2 Plt Count 242 INR APTT Sodium 135 L Potassium 3.3 L Chloride 95 L Carbon Dioxide 32 H BUN 9 Creatinine 0.63 Glucose 94 Calcium 9.2 Magnesium Total Bilirubin AST ALT Alkaline Phosphatase Troponin I 0.90 H* TSH 12/15/18 12/15/18 12/15/18 02:02 02:02 06:34 WBC Hgb Hct Plt Count INR APTT Sodium 138 Potassium 4.2 D Chloride 99 Carbon Dioxide 31 H BUN 11 Creatinine 0.65 Glucose 115 H Calcium 8.7 Magnesium Total Bilirubin AST ALT Alkaline Phosphatase Troponin I 0.55 H* TSH 2.251 - Imaging and Cardiology Chest Xray: report reviewed - EKG Interpretation EKG results cardiology: personally reviewed, left bundle branch block (previous EKG from 2015 shows intraventricular conduction delay) Consult Discharge Plan - Plan Referrals: Naty Dyer, [facility] [Primary Care Provider] - <DalejemalFlora - Last Filed: 12/15/18 16:34> Date of Encounter: 12/15/18 - Attending Attestation I examined this patient and my medical decision-making was reviewed with the Resident Physician. I agree with the documented findings, disposition and treatment plan as described. Ms. Polanco presents with chest congestion and incidental finding of elevated troponin, 0.90. ECG demonstrates LBBB - last ECG in our system was in 2014 showing IVCD. ECG not diagnostic for ACS. Etiology of troponin rise is unclear. Patient is a frail 78 year old that may not be a good cath candidate. Continue medical therapy for now. Echo to help guide management. Assessment and Plan Discussion w patient/family: The assessment and plan as outlined above was discussed with the patient and/or family members who expressed understanding and agreement. All questions were answered. Thank you for involving us in the care of your patient. Please call with any questions. History of Present Illness History of present illness: Ms. Polanco is a 78 year old female All Systems Review: The remainder of the systems were reviewed and are negative Physical Examination Vital Signs, Last 4 Hours Temp Pulse Resp BP Pulse Ox 12/15/18 15:18 97.7 F 97 18 118/70 97 Results 12/15/18 02:02 12/15/18 02:02 Lab Results 12/14/18 12/14/18 12/14/18 16:26 16:26 16:26 WBC 17.4 H Hgb 15.7 H Hct 45.2 H Plt Count 282 INR 1.0 APTT 29.0 Sodium 131 L Potassium 2.7 L Chloride 90 L Carbon Dioxide 35 H BUN 8 Creatinine 0.76 Glucose 144 H Calcium 9.8 Magnesium Total Bilirubin 0.5 AST 22 ALT 7 Alkaline Phosphatase 84 Troponin I 0.75 H* TSH 12/14/18 12/14/18 12/14/18 17:40 17:40 17:48 WBC 17.0 H Hgb 14.4 Hct 40.3 Plt Count 254 INR 0.9 APTT Sodium Potassium Chloride Carbon Dioxide BUN Creatinine Glucose Calcium Magnesium 1.8 Total Bilirubin AST ALT Alkaline Phosphatase Troponin I TSH 12/14/18 12/14/18 12/15/18 23:50 23:50 02:02 WBC 13.5 H Hgb 13.6 Hct 38.2 Plt Count 242 INR APTT Sodium 135 L Potassium 3.3 L Chloride 95 L Carbon Dioxide 32 H BUN 9 Creatinine 0.63 Glucose 94 Calcium 9.2 Magnesium Total Bilirubin AST ALT Alkaline Phosphatase Troponin I 0.90 H* TSH 12/15/18 12/15/18 12/15/18 02:02 02:02 06:34 WBC Hgb Hct Plt Count INR APTT Sodium 138 Potassium 4.2 D Chloride 99 Carbon Dioxide 31 H BUN 11 Creatinine 0.65 Glucose 115 H Calcium 8.7 Magnesium Total Bilirubin AST ALT Alkaline Phosphatase Troponin I 0.55 H* TSH 2.251
--- NOTE | 2018-12-15 13:11 | Internal Med Progress Note ---
Hospitalist Progress Note - Encounter Date of Encounter: 12/15/18 Time of Encounter: 09:25 - Subjective Interval History: Pt seen and examined at bedside. Pt resting in bed and reports of feeling better compared to previous day. Electrolyte abnormalities have been corrected. Pt denies any chest pain, sob at this time. Pt reports of feeling weak but better compared to previous day. Ten point ROS is negative except as listed above No overnight events were reported - Exam Vitals: Temp Pulse Resp BP Pulse Ox 97.6 F 82 19 125/78 98 12/15/18 11:20 12/15/18 11:20 12/15/18 11:20 12/15/18 11:20 12/15/18 11:20 Exam: General: No acute distress, AAO x 3, cachetic, frail appearing elderly female HEENT: EOMI, NC/AT, no scleral icterus Respiratory: Clear to auscultate bilaterally, no wheezing, no rales Cardiovascular: Regular, Rate, Rhythm, No murmurs GI: Soft, Non tender, non distended, normal bowel sounds Ext: No edema, no tenderness, positive pulses Neuro: AAO x 3, no focal deficits - Assessment and Plan (1) Elevated troponin Current Visit: Yes Status: Acute (2) Hypokalemia Current Visit: Yes Status: Acute Assessment and Plan: resolved continue to monitor electrolytes and replace as needed (3) Protein calorie malnutrition Current Visit: Yes Status: Chronic (4) Hyperlipidemia Current Visit: Yes Status: Acute - Summary of Assessment and Plan Summary of Assessment and Plan: - Assessment and Plan (1) Elevated troponin Current Visit: Yes Status: Acute Assessment and plan: Pt started on heparin drip in the ER Denies any chest pain at this time cardiology evaluation has been requested f/u 2D echo (2) Electrolyte imbalance Current Visit: Yes Status: Acute Assessment and plan: resolved will continue to monitor and replace electrolytes as needed (3) Leukocytosis Current Visit: Yes Status: Acute Assessment and plan: Likely secondary to recent steroid treatment, unlikely due to infectious etiology afebrile UA negative CXR negative blood cultures pending leukocytosis persists but improved from previous day continue to monitor Qualifiers: Leukocytosis type: unspecified Qualified Code(s): D72.829 - Elevated white blood cell count, unspecified (4) Congestion of paranasal sinus Current Visit: Yes Status: Acute Assessment and plan: Mild congestion with nonproductive cough 1 week No antibiotics warranted at this time Continue albuterol, mucolytics, and decongestant PRN (5) Malaise Current Visit: Yes Status: Acute Assessment and plan: Possibly related to deconditioning s/p recent fall vs nutritional status vs viral sinusitis Continue supportive care PT eval requested (6) Protein calorie malnutrition Current Visit: Yes Status: Acute Assessment and plan: Nutrition/Dietary eval requested Continue supportive care Qualifiers: Protein-calorie malnutrition severity: unspecified severity Qualified Code(s): E46 - Unspecified protein-calorie malnutrition (7) DVT prophylaxis Current Visit: Yes Status: Acute Assessment and plan: Heparin sq - Time Spent with Patient Total time spent is greater than 50% in coordination of care (as documented) at patient's floor/unit and/or counseling patient: Plan of Care Discussed with: patient (patient/RN/case management) Internal Medicine: Result - Labs CBC & Chem 7: 12/15/18 02:02 12/15/18 02:02 Labs: Short CBC 12/14/18 12/14/18 12/15/18 Range/Units 16:26 17:40 02:02 WBC 17.4 H 17.0 H 13.5 H (4.3-11.1) K/mcL Hgb 15.7 H 14.4 13.6 (11.5-15.4) g/dL Hct 45.2 H 40.3 38.2 (35.3-44.9) % Plt Count 282 254 242 (140-400) K/mcL Neutrophils # 14.0 H (1.6-8.9) K/mcL BMP 12/14/18 12/14/18 12/15/18 16:26 23:50 02:02 Sodium 131 L 135 L 138 Potassium 2.7 L 3.3 L 4.2 D Chloride 90 L 95 L 99 Carbon Dioxide 35 H 32 H 31 H BUN 8 9 11 Creatinine 0.76 0.63 0.65 Glucose 144 H 94 115 H Calcium 9.8 9.2 8.7 Cardiac Enzymes 12/14/18 12/14/18 12/15/18 Range/Units 16:26 23:50 06:34 Troponin I 0.75 H* 0.90 H* 0.55 H* (< 0.04) ng/mL Liver Function 12/14/18 Range/Units 16:26 Total Bilirubin 0.5 (0.3-1.0) mg/dL Direct Bilirubin 0.1 (0.0-0.2) mg/dL AST 22 (13-39) Units/L ALT 7 (7-52) Units/L Alkaline Phosphatase 84 (34-104) Units/L Albumin 4.3 (3.5-5.7) g/dL Urine 12/14/18 Range/Units 18:13 Urine Color Yellow (Yellow) Urine Clarity Cloudy A (Clear) Urine pH 7.0 (5.0-8.0) pH Units Ur Specific Boomer 1.006 L (1.010-1.025) Urine Protein 30 H (Neg-Trace) mg/dL Urine Glucose (UA) Normal (Normal) mg/dL - ABG Interpretation ABG results: PT/INR, D-dimer PT 10.0 Seconds (9.4-12.1) 12/14/18 17:40 - Impressions Impressions Chest X-Ray 12/14/18 15:37 IMPRESSION: Negative single view chest. D/ / Brian Frazier MD / Brian Frazier MD Interpreting Provider: Brian Frazier MD Consult Discharge Plan - Plan Referrals: Naty Dyer, TELEHEALTH DIRECTOR [Primary Care Provider] - (3) Protein calorie malnutrition Qualifiers: Protein-calorie malnutrition severity: unspecified severity Qualified Code(s): E46 - Unspecified protein-calorie malnutrition (4) Hyperlipidemia Qualifiers: Hyperlipidemia type: unspecified Qualified Code(s): E78.5 - Hyperlipidemia, unspecified
--- NOTE | 2018-12-15 14:30 | Electrocardiograph Report ---
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
[2018-12-15] MEDS: Aspirin 81 MG TAB.CHEW PO SCH (15:18)
[2018-12-16 04:33] LABS: Basophils # 0.1 K/mcL (0.0-0.2); Basophils % 0.7 %; Eosinophils # 0.2 K/mcL (0.0-0.6); Eosinophils % 1.3 %; Hemoglobin 14.6 g/dL (11.5-15.4); Immature Granulocytes % 0.4 % (0-4); Lymphocytes # 3.6 K/mcL (0.6-4.6); Lymphocytes % 22.2 %; Mean Corpuscular Hemoglobin 32.2 pg (28.0-33.3); Mean Corpuscular Volume 94.9 fL (83.0-100.0); Monocytes # 1.2 K/mcL (0.0-1.3); Monocytes % 7.5 %; Platelet Count 257 K/mcL (140-400); Red Blood Count 4.53 M/mcL (3.82-4.97); Red Cell Distribution Width 11.6 % (11.5-14.5); Segmented Neutrophils % 67.9 %
[2018-12-16 04:46] LABS: BUN/Creatinine Ratio 20 (6-26); Blood Urea Nitrogen 11 mg/dL (8-23); Calcium 9.4 mg/dL (8.6-10.3); Carbon Dioxide 27 mEq/L (23-29); Chloride 98 mEq/L (98-107); Glucose 141 mg/dL (70-105); Magnesium 1.8 mg/dL (1.6-2.6); Osmolality,Calculated 278 (280-300); Phosphorous 2.7 mg/dL (2.7-4.5); Potassium 3.9 mEq/L (3.5-5.1); Sodium 133 mEq/L (136-145); eGFR For Non-African Americans > 60 (> 60)
--- NOTE | 2018-12-16 07:55 | Cardiology Progress Note ---
<Josep Parnell - Last Filed: 12/16/18 09:51> Date of Encounter: 12/16/18 Time of Encounter: 07:53 Assessment and Plan (1) Elevated troponin Current Visit: Yes Status: Acute 78 year old female presented with chest congestion, diaphoresis, and dry heaving for the past 4 days. Labs revealed elevated troponins 0.75 --> 0.90 --> 0.55 EKG revealed left bundle-branch block. Last ECG in our system was in 2014 showing IVCD. ECG not diagnostic for ACS. She was started on Aspirin and a heparin drip. Echocardiogram LVEF 45-50%, mild segmental left ventricular systolic dysfunction, mildly dilated left ventricle, mild left ventricular diastolic dysfunction, normal right ventricular structure and function, mild mitral regurgitation, and no evidence of pulmonary hypertension. Etiology of troponin rise is unclear. Patient is a frail 78 year old that may not be a good cath candidate. Continue medical therapy for now: Aspirin, low-dose beta katina, and statin. Will hold off on XAVIER inhibitor at this time given her age and risk of hypot ension. (2) Hypokalemia Current Visit: Yes Status: Acute Hypokalemia 2.7 on arrival, magnesium level is within normal limits Potassium supplemented Continue monitoring. (3) Hyperlipidemia Current Visit: No Status: Chronic Continue statin. Qualifiers: Hyperlipidemia type: unspecified Qualified Code(s): E78.5 - Hyperlipidemia, unspecified (4) Protein calorie malnutrition Current Visit: Yes Status: Chronic Management per primary team. Qualifiers: Protein-calorie malnutrition severity: unspecified severity Qualified Code(s): E46 - Unspecified protein-calorie malnutrition Discussion w patient/family: The assessment and plan as outlined above was discussed with the patient and/or family members who expressed understanding and agreement. All questions were answered. Thank you for involving us in the care of your patient. Please call with any questions. Subjective Principal diagnosis: Congestion Interval history: Patient seen and examined resting comfortably in bed. Patient reports ongoing belching and difficulty sleeping last night. Echo was completed yesterday and a low dose beta katina was started today. Objective Vital Signs, Last 4 Hours Temp Pulse Resp BP Pulse Ox 12/16/18 04:57 97.5 F L 58 15 140/97 97 General: Conversant, No Apparent Distress (Cachectic) HEENT: Atraumatic, Normocephaly, Mucus Membranes Moist Neck: No JVD, Normal carotid pulses Cardiac: Reg Rate and Rhythm, Normal S1 and S2, No Murmur Lungs: Normal Breath Sounds, No Wheeze, Rales, Rhonchi Neuro: Alert and responsive, No focal deficits noted Abdomen: Soft, Non-Tender Skin: No rashes noted on visualized skin Musculoskeletal: No Chest Wall Tenderness Extremities: No Clubbing, No Cyanosis, No Edema, Normal Pulses Results 12/16/18 03:41 12/16/18 03:41 Lab Results 12/16/18 12/16/18 03:41 03:41 WBC 16.2 H Hgb 14.6 Hct 43.0 Plt Count 257 Sodium 133 L Potassium 3.9 Chloride 98 Carbon Dioxide 27 BUN 11 Creatinine 0.55 L Glucose 141 H Calcium 9.4 Magnesium 1.8 - Imaging and Cardiology Echo: report reviewed Consult Discharge Plan - Plan Referrals: Naty Dyer, DIE SIZER [Primary Care Provider] - <Jacky Rosales A - Last Filed: 12/16/18 14:59> Date of Encounter: 12/16/18 Assessment and Plan Discussion w patient/family: The assessment and plan as outlined above was discussed with the patient and/or family members who expressed understanding and agreement. All questions were answered. Thank you for involving us in the care of your patient. Please call with any questions. Objective Vital Signs, Last 4 Hours Temp Pulse Resp BP 12/16/18 12:14 97.5 F L 99 16 131/66 Results 12/16/18 03:41 12/16/18 03:41 Lab Results 12/16/18 12/16/18 03:41 03:41 WBC 16.2 H Hgb 14.6 Hct 43.0 Plt Count 257 Sodium 133 L Potassium 3.9 Chloride 98 Carbon Dioxide 27 BUN 11 Creatinine 0.55 L Glucose 141 H Calcium 9.4 Magnesium 1.8 - Attending Attestation I have personally performed a face to face evaluation on this patient. I have reviewed and agree with the documented findings and care plan as documented by the resident. History and Exam by me shows: NSTEMI likely demand ischemia. Troponin trending down. Continue optimal medical management including aspirin, beta katina, statin. Encourage nutritional support for protein energy malnutrition Thanks, Jacky Rosales MD [facility]
[2018-12-16] MEDS: Dorzolamide/Timolol OPTH 10 ML BOTTLE BOTH EYES SCH ×2 (09:05→20:05)
[2018-12-16] MEDS: Aspirin 81 MG TAB.CHEW PO SCH (09:05)
[2018-12-16] MEDS: Folic Acid 1 MG TABLET PO SCH (09:05)
[2018-12-16] MEDS: Loratadine 10 MG TABLET PO SCH (09:05)
--- NOTE | 2018-12-16 10:37 | Internal Med Progress Note ---
Hospitalist Progress Note - Encounter Date of Encounter: 12/16/18 Time of Encounter: 10:05 - Subjective Interval History: Pt seen and examined at bedside. Patient reports of having chronic insomnia and states her home dose of hydroxyzine makes it worse, which is what happened last night. She is requesting some another agent for insomnia. She also reports of feeling very gaseous but denies any abdominal pain or discomfort. Reports of having improvement in her appetite, and is eating better since hospitalization. Noted to be tachycardic this morning but denies any chest pain or palpitations. 10 point review of systems is negative except as listed above Tentative DC in a.m. if remains clinically stable - Exam Vitals: Temp Pulse Resp BP Pulse Ox 98.1 F 88 17 137/73 96 12/16/18 07:53 12/16/18 07:53 12/16/18 07:53 12/16/18 07:53 12/16/18 07:53 Exam: General: No acute distress, AAO x 3, cachetic, frail appearing elderly female HEENT: EOMI, NC/AT, no scleral icterus Respiratory: Clear to auscultate bilaterally, no wheezing, no rales Cardiovascular: Regular, Rate, Rhythm, No murmurs GI: Soft, Non tender, non distended, normal bowel sounds Ext: No edema, no tenderness, positive pulses Neuro: AAO x 3, no focal deficits - Summary of Assessment and Plan Summary of Assessment and Plan: - Assessment and Plan (1) Elevated troponin Current Visit: Yes Status: Acute Assessment and plan: Pt started on heparin drip in the ER, discontinue heparin drip (patient has received heparin drip for over 48 hours) Denies any chest pain at this time cardiology evaluation appreciated, medical management recommended 2-D echo reviewed (2) Electrolyte imbalance Current Visit: Yes Status: Acute Assessment and plan: resolved will continue to monitor and replace electrolytes as needed (3) Leukocytosis Current Visit: Yes Status: Acute Assessment and plan: Likely secondary to recent steroid treatment, unlikely due to infectious etiol ogy afebrile UA negative CXR negative blood cultures reporting no growth thus far Qualifiers: Leukocytosis type: unspecified Qualified Code(s): D72.829 - Elevated white blood cell count, unspecified (4) Congestion of paranasal sinus Current Visit: Yes Status: Acute Assessment and plan: Mild congestion with nonproductive cough 1 week No antibiotics warranted at this time Continue albuterol, mucolytics, and decongestant PRN (5) Malaise Current Visit: Yes Status: Acute Assessment and plan: Possibly related to deconditioning s/p recent fall vs nutritional status vs viral sinusitis Continue supportive care PT eval recommending home physical therapy (6) Protein calorie malnutrition Current Visit: Yes Status: Acute Assessment and plan: Nutrition/Dietary eval appreciated Patient reports improvement in her appetite and by mouth intake Continue supportive care Qualifiers: Protein-calorie malnutrition severity: unspecified severity Qualified Code(s): E46 - Unspecified protein-calorie malnutrition (7) DVT prophylaxis Current Visit: Yes Status: Acute Assessment and plan: Heparin sq (8) Abdominal discomfort will order Simethicone (9) Insomnia d/c Hydroxysine start Melatonin qHS - Time Spent with Patient Total time spent is greater than 50% in coordination of care (as documented) at patient's floor/unit and/or counseling patient: Plan of Care Discussed with: patient (patient/RN/family/case managment) Internal Medicine: Result - Labs CBC & Chem 7: 12/16/18 03:41 12/16/18 03:41 Labs: Short CBC 12/16/18 Range/Units 03:41 WBC 16.2 H (4.3-11.1) K/mcL Hgb 14.6 (11.5-15.4) g/dL Hct 43.0 (35.3-44.9) % Plt Count 257 (140-400) K/mcL Neutrophils # 11.0 H (1.6-8.9) K/mcL BMP 12/16/18 03:41 Sodium 133 L Potassium 3.9 Chloride 98 Carbon Dioxide 27 BUN 11 Creatinine 0.55 L Glucose 141 H Calcium 9.4 - ABG Interpretation ABG results: PT/INR, D-dimer PT 10.0 Seconds (9.4-12.1) 12/14/18 17:40 - Impressions Impressions Echocardiogram 12/15/18 10:00 Impressions: LVEF 45-50%. Mild segmental left ventricular systolic dysfunction. Mildly dilated left ventricle. Mild left ventricular diastolic dysfunction. Normal right ventricular structure and function. Mild mitral regurgitation. No evidence of pulmonary hypertension. Left Ventricular Wall Motion: Rest Echo Findings The apex, apical anterior, apical septal, mid anterior septal and basal anterior septal page were hypokinetic. All other wall segments showed normal motion. Findings: Study Quality * Technically sub-optimal due to poor echocardiographic windows. ECG Findings * Sinus rhythm with BBB. Left Ventricle * LVEF 45-50%. * Basal sigmoid septum. * Mildly dilated left ventricle. * Mild left ventricular diastolic dysfunction. * Definity echo contrast was used. * There is no LV thrombus. * Mild segmental left ventricular systolic dysfunction. * Atypical septal motion consistent with bundle branch block. Right Ventricle * Normal right ventricular structure and function. Left Atrium * Normal left atrial size. Right Atrium * Normal right atrial size. Aortic Valve * Aortic valve not well visualized. * Mild-moderate aortic regurgitation. * No aortic stenosis. * Normal aortic valve structure. Mitral Valve * Mild mitral regurgitation. * No mitral stenosis. * Normal mitral valve structure. Tricuspid Valve * Trace tricuspid regurgitation. * No tricuspid stenosis. * Normal tricuspid valve structure. * No evidence of pulmonary hypertension. Pulmonic Valve * Pulmonic valve not well visualized. Aorta * Normally sized aortic root. Pericardium * The pericardium appears normal. IVC * Normal IVC dimensions and inspiratory collapse. Pulmonary Artery * Pulmonary artery not well visualized. Consult Discharge Plan - Plan Referrals: Naty Dyer, CISCO ENGINEER [Primary Care Provider] -
[2018-12-16] MEDS: Simethicone 80 MG TAB.CHEW PO SCH ×3 (11:40→20:06)
[2018-12-16] MEDS: *HR* Heparin 5,000 UNIT/ML VIAL SQ SCH (17:57)
[2018-12-16] MEDS ORDERED: Melatonin 3 MG TABLET PO SCH (21:00)
[2018-12-16] MEDS ORDERED: Acetaminophen 325 MG TABLET PO ONE (23:05)
[2018-12-17 05:31] LABS: Basophils # 0.1 K/mcL (0.0-0.2); Basophils % 0.9 %; Eosinophils # 0.2 K/mcL (0.0-0.6); Eosinophils % 1.8 %; Hematocrit 38.7 % (35.3-44.9); Hemoglobin 13.3 g/dL (11.5-15.4); Immature Granulocytes % 0.3 % (0-4); Lymphocytes # 2.5 K/mcL (0.6-4.6); Lymphocytes % 21.3 %; Mean Corpuscular HGB Conc 34.4 g/dL (31.6-35.5); Mean Corpuscular Hemoglobin 32.5 pg (28.0-33.3); Mean Corpuscular Volume 94.6 fL (83.0-100.0); Mean Platelet Volume 9.9 fL (9.4-12.4); Monocytes # 0.9 K/mcL (0.0-1.3); Monocytes % 7.8 %; Platelet Count 216 K/mcL (140-400); Red Blood Count 4.09 M/mcL (3.82-4.97); Red Cell Distribution Width 11.6 % (11.5-14.5); Segmented Neutrophils % 67.9 %
[2018-12-17] MEDS: *HR* Heparin 5,000 UNIT/ML VIAL SQ SCH (05:32)
[2018-12-17 05:47] LABS: BUN/Creatinine Ratio 24 (6-26); Blood Urea Nitrogen 13 mg/dL (8-23); Calcium 9.1 mg/dL (8.6-10.3); Carbon Dioxide 28 mEq/L (23-29); Chloride 98 mEq/L (98-107); Glucose 128 mg/dL (70-105); Magnesium 1.8 mg/dL (1.6-2.6); Osmolality,Calculated 276 (280-300); Phosphorous 3.3 mg/dL (2.7-4.5); Potassium 3.5 mEq/L (3.5-5.1); Sodium 132 mEq/L (136-145); eGFR For Non-African Americans > 60 (> 60)
[2018-12-17 08:25] VITALS: BP 143/88
[2018-12-17] MEDS: Loratadine 10 MG TABLET PO SCH (08:38)
[2018-12-17] MEDS: Simethicone 80 MG TAB.CHEW PO SCH ×2 (08:38→14:24)
[2018-12-17] MEDS: Aspirin 81 MG TAB.CHEW PO SCH (08:39)
[2018-12-17] MEDS: Folic Acid 1 MG TABLET PO SCH (08:39)
[2018-12-17] MEDS ORDERED: Cholecalciferol (D-3) 1,000 UNIT TABLET PO SCH (09:00)
[2018-12-17] MEDS: Dorzolamide/Timolol OPTH 10 ML BOTTLE BOTH EYES SCH (09:46)
--- NOTE | 2018-12-17 11:44 | Electrocardiograph Report ---
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
--- NOTE | 2018-12-17 13:14 | Physician Discharge Referral ---
Home Health/Hosp Referral Info Transfer to: Home Health Provider in Charge Post Discharge: PCP - Diagnosis (1) Elevated troponin Priority: Primary Status: Acute (2) Hypokalemia Priority: Primary Status: Acute (3) Protein calorie malnutrition Priority: Secondary Status: Chronic (4) Hyperlipidemia Priority: Secondary Status: Chronic - Respiratory Orders Smoking Cessation: Smoking cessation has been advised. For more information, call the [place] Tobacco Quit Line at 1-651-UTLM-NOW. - Services Needed Following services are medically necessary services: Nursing, Home Health Aide, Physical Therapy, Occupational Therapy - Transfer Medications Prescriptions: Aspirin 81 mg PO DAILY #30 tab.chew Melatonin 3 mg PO HS #30 tablet Metoprolol [Lopressor] 12.5 mg PO BID #60 tablet Home Medications: Ascorbic Acid [Vitamin C] 500 mg PO DAILY 12/14/18 [History] Dicyclomine Hcl [Bentyl] 20 mg PO QID PRN 12/14/18 [History] Folic Acid 1 mg PO DAILY 12/14/18 [History] Loratadine [Claritin] 10 mg PO DAILY 12/14/18 [History] Cholecalciferol (Vitamin D3) [Dialyvite Vitamin D] 5,000 unit PO DAILY 12/15/18 [History] Dorzolamide/Timolol/Pf [Cosopt Pf Eye Drops] 1 drp BOTH EYES BID 12/15/18 [History] Lovastatin [Mevacor] 20 mg PO DAILY 12/15/18 [History] Aspirin 81 mg PO DAILY #30 tab.chew 12/17/18 [Rx] Melatonin 3 mg PO HS #30 tablet 12/17/18 [Rx] Metoprolol [Lopressor] 12.5 mg PO BID #60 tablet 12/17/18 [Rx] Allergies/Adverse Reactions: Allergy/AdvReac Type Severity Reaction Status Date / Time No Known Allergies Allergy Verified 12/15/18 16:02 Certification: Further, I certify that my clinical findings support that this patient is homebound (i.e. absences from home require considerable and taxing effort and are for medical reasons or scientology services or infrequently or short duration when for other reasons) because: Homebound Reason: Patient requires assistance of a person or device to safely leave home Attestation: My signature below is to certify that this patient is under my care and that I, or nurse practitioner, or a physician's hospital clinic assistant working with me, has a [id number] encounter with this patient.
--- NOTE | 2018-12-17 13:19 | Discharge Summary ---
- NOTES TO OUTPATIENT PROVIDER Notes to Outpatient Provider: Patient was admitted for elevated troponin and was evaluated by cardiology. Patient was started on aspirin and metoprolol. Patient continues to report of severe insomnia which improved with one-time dose of Benadryl. Please reevaluate patient's home medications and adjust as needed for management of insomnia. Orders not resulted at time of discharge: Pending orders 12/14/18 18:39 Culture,Blood [BC] Stat Date of Encounter: 12/17/18 Time of Encounter: 11:15 - Discharge Diagnosis (1) Elevated troponin Priority: Primary Status: Acute (2) Hypokalemia Priority: Primary Status: Acute (3) Protein calorie malnutrition Priority: Secondary Status: Chronic Qualifiers: Protein-calorie malnutrition severity: unspecified severity Qualified Code(s): E46 - Unspecified protein-calorie malnutrition (4) Hyperlipidemia Priority: Secondary Status: Chronic Qualifiers: Hyperlipidemia type: unspecified Qualified Code(s): E78.5 - Hyperlipidemia, unspecified Hospital course: Ms. Polanco is a 78 year old female with past medical history of hyperlipidemia, insomnia, protein calorie malnutrition who was admitted for management of elevated troponin, electrolyte abnormalities, and weakness. Patient was evaluated by cardiology and medical management was recommended. Patient was started on aspirin and metoprolol. Patient's electrolytes were corrected. She was evaluated by physical therapy and home health services are recommended. 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 Patient is seen and examined on the day of discharge. Patient reported feeling significantly better since her hospitalization. Patient also reported severe insomnia which has not been improved with hydroxyzine. Hydroxyzine has been discontinued and patient received a dose of melatonin over night. Patient reported no improvement in her symptoms with melatonin and was given one-time dose of Benadryl 25 mg PO. Patient reports of being able to sleep throughout the night after receiving Benadryl. Currently patient is medically stable for discharge to home with continuation of home health services. Patient will be discharged to home with outpatient follow-up with primary care physician and cardiology. Discharge discussed with: patient, nurse, social work, case management - Time Spent with Patient Total time spent providing and/or coordinating discharge services: Time spent: Greater than 30 minutes - Discharge Medications Prescriptions: New Aspirin 81 mg PO DAILY #30 tab.chew Melatonin 3 mg PO HS #30 tablet Metoprolol [Lopressor] 12.5 mg PO BID #60 tablet Continue Folic Acid 1 mg PO DAILY Loratadine [Claritin] 10 mg PO DAILY Dicyclomine Hcl [Bentyl] 20 mg PO QID PRN PRN Reason: Pain Ascorbic Acid [Vitamin C] 500 mg PO DAILY Cholecalciferol (Vitamin D3) [Dialyvite Vitamin D] 5,000 unit PO DAILY Dorzolamide/Timolol/Pf [Cosopt Pf Eye Drops] 1 drp BOTH EYES BID Lovastatin [Mevacor] 20 mg PO DAILY Discontinued Lactobacillus Acidophilus [Acidophilus] 1 cap PO DAILY hydrOXYzine HCl [Hydroxyzine HCl] 25 - 50 mg PO HS PRN PRN Reason: Sleep Azithromycin [Azithromycin 6-Tab Pack] 250 mg PO PER PKG DI PredniSONE [Deltasone] 40 mg PO DAILY Home Medications: Ascorbic Acid [Vitamin C] 500 mg PO DAILY 12/14/18 [History] Dicyclomine Hcl [Bentyl] 20 mg PO QID PRN 12/14/18 [History] Folic Acid 1 mg PO DAILY 12/14/18 [History] Loratadine [Claritin] 10 mg PO DAILY 12/14/18 [History] Cholecalciferol (Vitamin D3) [Dialyvite Vitamin D] 5,000 unit PO DAILY 12/15/18 [History] Dorzolamide/Timolol/Pf [Cosopt Pf Eye Drops] 1 drp BOTH EYES BID 12/15/18 [History] Lovastatin [Mevacor] 20 mg PO DAILY 12/15/18 [History] Aspirin 81 mg PO DAILY #30 tab.chew 12/17/18 [Rx] Melatonin 3 mg PO HS #30 tablet 12/17/18 [Rx] Metoprolol [Lopressor] 12.5 mg PO BID #60 tablet 12/17/18 [Rx] Allergies/Adverse Reactions: Allergy/AdvReac Type Severity Reaction Status Date / Time No Known Allergies Allergy Verified 12/15/18 16:02 Date of admission: 12/14/18 21:27 Primary care physician: Naty Dyer CNP Consults: 12/15/18 10:11 Consult to Cardiology [CONS] Routine Comment: Consulting Provider: Cardiology [facility] Reason for Consult: elevated TNI Call Completed: Yes 12/15/18 10:58 Consult to Physical Therapy [CONS] Routine Comment: Evaluate, develop and implement POC Reason for Consult: Weakness Does patient have active BEDREST order?: No Is patient medically & hemodynamically stable?: Yes 12/15/18 10:59 Consult to Nutrition [CONS] Routine Comment: Consulting Provider: NUTRITION Reason for Dietary Consult: PO Supplementation Discharging clinician: Brittany Beard Anticipated date of discharge: 12/17/18 - Constitutional Vitals: Temp Pulse Resp BP Pulse Ox 96.5 F L 94 20 143/88 97 12/17/18 08:18 12/17/18 08:18 12/17/18 08:18 12/17/18 08:18 12/17/18 08:18 General appearance: Present: A&O X 3, no acute distress, underweight, answers questions appropriately Exam: General: No acute distress, AAO x 3, cachetic, frail appearing elderly female HEENT: EOMI, NC/AT, no scleral icterus Respiratory: Clear to auscultate bilaterally, no wheezing, no rales Cardiovascular: Regular, Rate, Rhythm, No murmurs GI: Soft, Non tender, non distended, normal bowel sounds Ext: No edema, no tenderness, positive pulses Neuro: AAO x 3, no focal deficits - Patient Status Disposition: Home Health Service Condition: Good Functional capacity at discharge: uses cane/walker - Discharge Instructions Follow Up With: Naty Dyer CNP [Primary Care Provider] - Additional Instructions: 1. Please follow up with your primary care physician within five days after your discharge from the hospital. 2. Please follow up with cardiology within one to two weeks after your discharge from the hospital. 3. Aspirin 81mg once a day has been added to you home medications. Metoprolol 12.5 mg twice a day has been added to your home medications. Hydroxyzine has been discontinued. Melatonin 3 mg at bedtime has been added to your medications. You were given 1 time dose of Benadryl 25 mg last night, you may get this medication over the counter as needed as a sleep aid, however ask your PCP about alternative options for your insomnia. 4. Please continue all other medications as prescribed by your primary care physician 5. Please seek medical help if you have difficulty breathing or if chest pain occurs. - Diet and Activity Activity: as per physical therapy
== END 2018-12-17 15:09 | disposition home health service (06) ==
LOC: EMEROOARM 13:50 → 2NENU 13:50 → SUATTDRO 21:27 → 2NENU 22:15
PROVIDERS: ADMIT Internal Medicine; ATTEND Internal Medicine

== ENCOUNTER 2021-04-27 17:07 | Observation (INO) ==
[2021-04-27] MEDS ORDERED: 0.9 % Sodium Chloride 1,000 ML IV ONE (18:03)
[2021-04-27 18:05] LABS: Basophils # 0.1 K/mcL (0.0-0.2); Basophils % 0.9 %; Eosinophils # 0.3 K/mcL (0.0-0.6); Eosinophils % 3.5 %; Hematocrit 43.6 % (35.3-44.9); Hemoglobin 14.8 g/dL (11.5-15.4); Immature Granulocytes % 0.2 % (0-4); Lymphocytes # 1.9 K/mcL (0.6-4.6); Lymphocytes % 22.1 %; Mean Corpuscular HGB Conc 33.9 g/dL (31.6-35.5); Mean Corpuscular Hemoglobin 32.7 pg (28.0-33.3); Mean Corpuscular Volume 96.2 fL (83.0-100.0); Mean Platelet Volume 10.5 fL (9.4-12.4); Monocytes # 0.5 K/mcL (0.0-1.3); Monocytes % 6.3 %; Neutrophils # 5.7 K/mcL (1.6-8.9); Platelet Count 185 K/mcL (140-400); Red Blood Count 4.53 M/mcL (3.82-4.97); Red Cell Distribution Width 12.4 % (11.5-14.5); White Blood Count 8.5 K/mcL (4.3-11.1)
[2021-04-27 18:26] LABS: BUN/Creatinine Ratio 17 (6-26); Blood Urea Nitrogen 17 mg/dL (8-23); Calcium 9.4 mg/dL (8.6-10.3); Carbon Dioxide 25 mEq/L (23-29); Chloride 106 mEq/L (98-107); Glucose 134 mg/dL (70-105); Magnesium 2.1 mg/dL (1.6-2.6); Osmolality,Calculated 292 (280-300); Potassium 3.9 mEq/L (3.5-5.1); Sodium 139 mEq/L (136-145); eGFR For African Americans > 60 (> 60); eGFR For Non-African Americans 54 (> 60)
[2021-04-27 18:27] LABS: Troponin I < 0.03 ng/mL (< 0.04)
[2021-04-27] MEDS ORDERED: Melatonin 3 MG TABLET PO PRN (20:29)
[2021-04-27] MEDS ORDERED: Naloxone 0.4 MG/ML INJ IVP PRN (20:29)
[2021-04-27] MEDS ORDERED: Acetaminophen 325 MG TABLET PO PRN (20:29)
[2021-04-27] MEDS ORDERED: Ondansetron 4 MG/2 ML VIAL IVP PRN (20:29)
[2021-04-27] MEDS ORDERED: Perflutren Lipid Microsphere 1.3 ML in 0.9 % Sodium Chloride 8.7 ML IVP PRN (22:24)
[2021-04-27] MEDS: 0.9 % Sodium Chloride 1,000 ML IVC SCH (23:16)
[2021-04-27] MEDS ORDERED: Temazepam 15 MG CAPSULE PO SCH (23:30)
[2021-04-28 03:15] LABS: Mean Corpuscular HGB Conc 33.8 g/dL (31.6-35.5); Mean Corpuscular Hemoglobin 32.4 pg (28.0-33.3); Mean Corpuscular Volume 95.6 fL (83.0-100.0); Mean Platelet Volume 11.1 fL (9.4-12.4); Platelet Count 169 K/mcL (140-400); Red Blood Count 4.08 M/mcL (3.82-4.97); Red Cell Distribution Width 12.4 % (11.5-14.5); White Blood Count 7.2 K/mcL (4.3-11.1)
[2021-04-28 03:30] LABS: Hemoglobin 13.2 g/dL (11.5-15.4)
[2021-04-28 03:32] LABS: BUN/Creatinine Ratio 23 (6-26); Blood Urea Nitrogen 20 mg/dL (8-23); Calcium 8.5 mg/dL (8.6-10.3); Carbon Dioxide 24 mEq/L (23-29); Chloride 111 mEq/L (98-107); Glucose 90 mg/dL (70-105); Osmolality,Calculated 292 (280-300); Phosphorous 3.4 mg/dL (2.7-4.5); Sodium 140 mEq/L (136-145); eGFR For African Americans > 60 (> 60); eGFR For Non-African Americans > 60 (> 60)
[2021-04-28 07:12] VITALS: O2SAT 95
[2021-04-28 08:15] LABS: Thyroid Stimulating Hormone 2.039 mcIU/mL (0.340-5.600)
[2021-04-28] MEDS ORDERED: Aspirin 81 MG TAB.CHEW PO SCH (09:00)
[2021-04-28] MEDS ORDERED: Cholecalciferol (D-3) 1,000 UNIT (25MCG) TABLET PO SCH (09:00)
[2021-04-28] MEDS ORDERED: Dorzolamide/Timolol 1 DROP BOTH EYES SCH (09:00)
[2021-04-28] MEDS ORDERED: Loratadine 10 MG TABLET PO SCH (09:00)
[2021-04-28] MEDS: 0.9 % Sodium Chloride 1,000 ML IVC SCH (09:33)
[2021-04-28 10:23] LABS: Bilirubin,Urine Negative (Negative); Blood,Urine Trace (Negative); Clarity,Urine Clear (Clear); Color,Urine Colorless (Yellow); Glucose,Urine (UA) Normal (Normal); Ketones,Urine Negative (Negative); Leukocyte Esterase,Urine Negative (Negative); Mucus,Urine Few per lpf (None-Few); Nitrite,Urine Negative (Negative); PH,Urine 6.5 pH Units (5.0-8.0); Protein,Urine Negative (Neg-Trace); RBC,Urine 0-3 per hpf (0-3); Urobilinogen,Urine Normal (Normal); WBC,Urine 0-3 per hpf (0-3)
[2021-04-28] MEDS ORDERED: Dorzolamide/Timolol OPTH 10 ML BOTTLE BOTH EYES SCH (10:45)
[2021-04-28 15:38] VITALS: BP 127/72; PULSE 60; TEMP 97.6
[2021-04-28] MEDS ORDERED: Latanoprost 2.5 ML BOTTLE BOTH EYES SCH (21:00)
== END 2021-04-28 17:28 | disposition home or self-care (01) ==
LOC: EMEROOARM 17:07 → 3BNU 17:07 → SUATTDRO 20:29 → 3BNU 20:48
PROVIDERS: ADMIT Internal Medicine; ATTEND Internal Medicine